=== PATIENT | male | born 1975 | race Caucasian/White ===

== ENCOUNTER 2024-09-20 19:17 | Emergency (ER) | payer OTHER, SELFPAY ==
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
[2024-09-20] MEDS: LIDOCAINE/EPINEP/TETRACAINE 3 ML GEL..ML. TOPICAL (20:00)
[2024-09-20 20:01] VITALS: BP 120/80; PULSE 78; RESP 16; TEMP 36.9; O2SAT 98; BMI 20.9
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
--- OUTSIDE RECORDS SUMMARY | 2024-09-20 20:20 | XMS_ITS | Clinical Summary ---
Author Organization [facility] Address [address] [place] [id number] Care Team Providers Care Staff Consultant Name Role Phone No Ref-Primary, Physician Primary Care Provider Allergies No known active allergies Medications HYDROcodone-acet aminophen (NORCO) 5-325 MG tablet Take 1 tablet by mouth every 6 hours as needed for pain 6 tablet 09/07/2021 Active Immunizations Immunization Administration Dates Next Due TDAP (Adacel,Boostrix) 09/07/2021 Social History Tobacco Use Types Packs/Day Years Used Date Smoking Tobacco: Never Assessed Adolescent Education Answer Date Record ed Getting School Help Needed Not on file 12/17 Sex and Gender Information Value Date Recorded Sex Assigned at Not on file 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 Gender Identity Not on file Sexual Orientation Not on file Last Filed Vital Signs Vital Sign Reading Time Taken Comments Blood Pressure 146/96 09/06/2021 10:53 PM CDT Pulse 88 09/06/2021 10:53 PM CDT Temperature 36.7 C (98 F) 09/06/2021 10:53 PM CDT Respiratory Rate 18 09/06/2021 10:53 PM CDT Oxygen Saturation 100% 09/06/2021 10:53 PM CDT Inhaled Oxygen Concentration - - Weight 68 kg (150 lb) 09/06/2021 10:53 PM CDT Height - - Body Mass Index - - Plan of Treatment Not on file Care Teams Staff Consultant Relationship Specialty Start Date End Date No Ref-Primary, Physician PCP - General 09/07/21
[2024-09-20] MEDS: KETOROLAC 10 MG TABLET PO (21:48)
== END 2024-09-20 22:01 | disposition home or self-care (01) ==
PROVIDERS: Emergency Provider Emergency Medicine Emergency Medical Services
DX: S01.81XA Laceration without foreign body of other part of head, initial encounter (principal); S01.511A Laceration without foreign body of lip, initial encounter; V29.881A Electric (assisted) bicycle rider (driver) (passenger) injured in other specified transport accidents, initial encounter
CPT/HCPCS: 12011; 99283; 99284; A9270